=== PATIENT | female | born 1960 | race Two or more races ===

== ENCOUNTER 2025-05-05 10:29 | Emergency (ER) | payer OTHER ==
[~2025-05-05] VITALS: Ht 165.1 cm; Wt 61.2 kg
[2025-05-05] MEDS ORDERED: ACID REDUCER20 M1 (11:09)
[2025-05-05] MEDS ORDERED: FAMOTIDINE40 MG (11:09)
[2025-05-05] MEDS ORDERED: LOSARTAN POTASS25 MG (11:10)
[2025-05-05] MEDS ORDERED: ROSUVASTATIN CA10 MG (11:10)
[2025-05-05] MEDS ORDERED: SUCRALFATE1 GM (11:10)
[2025-05-05] MEDS ORDERED: 0.9 % SODIUM CHLORIDE 1,000 ML IV STA (11:21)
[2025-05-05] MEDS ORDERED: LACTOBACILLUS ACIDOPHILUS 1 CAP CAP PO ONE ×2 (11:28→11:30)
[2025-05-05 11:59] LABS: BASO % 0.6 % (0.1-1.2); EOS % 4.2 % (0.7-7.0); HEMOGLOBIN 10.9 g/dL (11.2-15.7); LYMPH # 2.37 (1.18-3.74); LYMPH % 33.5 % (19.3-53.1); MEAN CORPUSCULAR HEMOGLOBIN 28.5 pg (25.6-32.2); MONO # 0.57 (0.24-0.82); MONO % 8.1 % (4.7-12.5); NEUT # 3.77 (1.56-6.13); NEUT % 53.3 % (34.0-71.1); PLATELET COUNT 333 K/uL (163-369); RED BLOOD COUNT 3.82 M/uL (3.93-5.22)
[2025-05-05 12:26] LABS: CALCIUM 9.9 mg/dL (8.5-10.1); CREATININE SERUM 0.94 mg/dL (0.55-1.02); GFR 59.95; POTASSIUM 3.95 mEq/L (3.5-5.1)
[2025-05-05 12:46] LABS: PH,URINE 7.5 (5.0-8.0); URINE APPEARANCE Clear; URINE BILIRRUBIN Negative (NEGATIVE); URINE BLOOD Negative; URINE COLOR Yellow; URINE GLUCOSE Negative (NEGATIVE); URINE KETONE Negative (NEGATIVE); URINE LEUKOCYTE Moderate; URINE NITRATE Negative; URINE PROTEIN Negative (NEGATIVE); URINE UROBILINOGEN 0.2 E.U./dl
[2025-05-05 13:14] LABS: URINE BACTERIA 8.5 uL (0.0-1933); URINE EPITHELIAL CELLS 4.2 uL (0.0-38.8); URINE WBC 36.2 uL (0.0-23.2)
[2025-05-05] MEDS ORDERED: CIPROFLOXACIN IN 5 % DEXTROSE 400 MG/200 ML PIGGYBAG IV ONE (15:00)
[2025-05-05] MEDS ORDERED: METRONIDAZOLE/SODIUM CHLORIDE 500 MG/100 ML PIGGYBACK IV ONE ×2 (15:00→15:09)
[2025-05-05] MEDS ORDERED: KETOROLAC TROMETHAMINE 30 MG VIAL IV ONE (15:00)
== END 2025-05-05 17:38 | disposition home or self-care (01) ==
LOC: ER 10:29
PROVIDERS: Emergency Medicine
DX: K52.9 Noninfective gastroenteritis and colitis, unspecified (principal); E11.9 Type 2 diabetes mellitus without complications; I10 Essential (primary) hypertension